=== PATIENT | female | born 1955 | race Caucasian/White ===

== ENCOUNTER → 2017-01-14 | Outpatient (CLI) | payer BC ==
[~2017-01-14] MED LIST: CIPR-255 PO; FLUO20CA36 PO; HYDR-5688 PO; IMT100 PO; LAMO1TAB21 PO; LPT10 PO; LTHCR300 PO; METR500T PO; TRAZ50TA35 PO
--- NOTE | 2017-01-14 11:55 | DIAGNOSTIC IMAGING REPORT ---
CHEST 2 VIEWS ROUTINE CLINICAL HISTORY: F31.81 BIPOLAR DISORDER PREPROCEDURE CHEST COMPARISON STUDY: No previous studies for comparison. FINDINGS: The cardiac and mediastinal contours are normal. There is no evidence of focal pulmonary consolidation. There is no evidence of failure. No pleural effusions are visualized.[ There is a small linear focus of subsegmental atelectasis the left lung base IMPRESSION: No active disease in the chest. Electronically signed by: Jarad Dangelo M.D. 01/14/2017 11:53 AM Dictated Date/Time: 01/14/2017 11:53 AM
== END | disposition home or self-care (01) ==
LOC: C.RAD1850 11:39
PROVIDERS: ATTEND Psychiatry & Neurology Psychiatry
DX: F31.81 Bipolar II disorder (principal)

== ENCOUNTER 2017-03-02 19:17 | Emergency (ER) | payer BC ==
[~2017-03-02] VITALS: Ht 162.6 cm; Wt 88.9 kg
[~2017-03-02 19:17] MED LIST changes: -CIPR-255 PO; -HYDR-5688 PO; -METR500T PO
[2017-03-02 19:19] VITALS: Ht 162.6 cm; Wt 88.9 kg
--- NOTE | 2017-03-02 19:38 | EMERGENCY ROOM VISIT NOTE ---
History Report prepared by Lisa: Jil Yuen Under the Supervision of: Dr. Meme Dickson D.O. First contact with patient: 19:26 Chief Complaint: ABDOMINAL PAIN Stated Complaint: SEVERE ABDOMINAL PAIN History of Present Illness The patient is a 61 year old female who presents to the Emergency Room with complaints of constant RLQ abdominal pain beginning at 0200 last night. The patient states that this is her fourth time coming to ER for diverticulitis, but that she has not been back in about a year. The patient denies having any procedures done for her diverticulitis. No hx of abscess or perf to her knowledge. She states that she has been both constipated and had diarrhea over the last 3 weeks. She reports a family history of diverticulitis. The patient states that she has been dealing with severe depression and that she has just completed 12 ECT treatments. Pt denies headache, change in vision, fevers, chest pain, shortness of breath, nausea, vomiting, pain with urination, and melena. Source of History: patient Onset: 0200 last night Position: abdomen (RLQ) Timing: constant Associated Symptoms: + diarrhea, No fevers, No chills, No headache, No chest pain, No nausea, No vomiting, No melena Review of Systems See HPI for pertinent positives & negatives. A total of 10 systems reviewed and were otherwise negative. Past Medical & Surgical Medical Problems: (1) Alcohol dependence (2) Depression (3) Diverticulitis (4) Past Psychotropic medications (5) rule out personlity disorder Social History Problems: (1) Alcohol abuse Family History Patient reports no known family medical history. Social History Smoking Status: Never Smoker Alcohol Use: heavy Marital Status: Housing Status: lives with family Occupation Status: employed Current/Historical Medications Scheduled Ciprofloxacin Hcl (Cipro), 500 MG PO BID Fluoxetine HCl (Fluoxetine HCl), 40 MG PO DAILY Lamotrigine (Lamotrigine), 200 MG PO DAILY Metronidazole (Flagyl), 500 MG PO TID Trazodone Hcl (Trazodone), 100 MG PO HS Scheduled PRN Hydrocodone/Acetaminophen 5MG/325MG ([place]wend[place] 5MG/325MG), 1 TABLET PO Q6 PRN for Pain Sumatriptan Succinate (Imitrex), 100 MG PO UD PRN for Migraine Allergies Coded Allergies: No Known Allergies (Unverified , 02/06/16) pt Physical Exam Vital Signs Date Time Temp Pulse Resp B/P (MAP) Pulse Ox O2 Delivery O2 Flow Rate FiO2 03/02/17 22:35 80 20 93 03/02/17 22:31 134/80 03/02/17 22:05 80 13 95 03/02/17 22:02 37.0 83 18 141/77 94 Room Air 03/02/17 21:31 141/77 03/02/17 21:17 83 18 94 03/02/17 21:01 133/80 03/02/17 20:58 139/83 03/02/17 20:35 80 03/02/17 20:31 125/74 03/02/17 19:19 37.0 98 18 118/75 95 Room Air Physical Exam GENERAL: alert, well appearing, well nourished, no distress, non-toxic EYE EXAM: normal conjunctiva, PERRL and EOM's grossly intact OROPHARYNX: no exudate, no erythema, lips, buccal mucosa, and tongue normal and mucous membranes are dry NECK: supple, no nuchal rigidity, no adenopathy, non-tender LUNGS: Clear to auscultation. Normal chest wall mechanics, no w/r/r HEART: no murmurs, S1 normal and S2 normal ABDOMEN: abdomen soft, LLQ lateral abdominal pain, normo-active bowel sounds, no masses, no rebound or guarding. BACK: Back is symmetrical on inspection and there is no deformity, no midline tenderness, no CVA tenderness. SKIN: no rashes and no bruising UPPER EXTREMITIES: upper extremities are grossly normal. LOWER EXTREMITIES: No pitting edema. NEURO EXAM: Normal sensorium, cranial nerves II-XII [grossly] intact, normal speech, no [gross] weakness of arms, no [gross] weakness of legs. Sensation grossly normal. Medical Decision & Procedures ER Provider Diagnostic Interpretation: Radiology results have been interpreted by the radiologist and reviewed by me. ABD/PELVIS IV CONTRAST ONLY CT DOSE: 648.05 mGy.cm HISTORY: Pelvic pain llq pain, hx diverticulitis TECHNIQUE: Multiaxial CT images of the abdomen and pelvis were performed following the use of intravenous contrast. A dose lowering technique was utilized adhering to the principles of ALARA. COMPARISON STUDY: 06/23/2015 FINDINGS: Lung bases are clear. Fatty infiltration of liver. Kidneys enhance uniformly. Pancreas is unremarkable. Considerable pericolonic infiltrative change of the distal descending colon and to a lesser extent proximal sigmoid. General wall thickening of this region of the colon consistent with acute diverticulitis. No well-defined drainable abscess or collection. Bowel pattern is considered nonobstructive. Chronic sigmoid diverticulosis. Normal appendix. IMPRESSION: 1. Significant acute distal descending and proximal sigmoid diverticulitis. 2. Considerable pericolonic infiltrative change with a trace of pericolonic fluid/edema. 3. No evidence for abscess collection or obstruction.. 4. Chronic sigmoid diverticulosis. The above report was generated using voice recognition software. It may contain grammatical, syntax or spelling errors. Electronically signed by: Jason Arreola M.D. 03/02/2017 8:58 PM Dictated Date/Time: 03/02/2017 8:53 PM Laboratory Results 03/02/17 19:50 Red Blood Count 4.38, Mean Corpuscular Volume 89.0, Mean Corpuscular Hemoglobin 30.8, Mean Corpuscular Hemoglobin Concent 34.6, Mean Platelet Volume 10.1, Neutrophils (%) (Auto) 76.0, Lymphocytes (%) (Auto) 11.0, Monocytes (%) (Auto) 12.3, Eosinophils (%) (Auto) 0.3, Basophils (%) (Auto) 0.1, Neutrophils # (Auto ) 8.36, Lymphocytes # (Auto) 1.21, Monocytes # (Auto) 1.35, Eosinophils # (Auto ) 0.03, Basophils # (Auto) 0.01 03/02/17 19:50 Test 03/02/17 19:50 White Blood Count 10.99 K/uL (4.8-10.8) Red Blood Count 4.38 M/uL (4.2-5.4) Hemoglobin 13.5 g/dL (12.0-16.0) Hematocrit 39.0 % (37-47) Mean Corpuscular Volume 89.0 fL (80-100) Mean Corpuscular Hemoglobin 30.8 pg (25-34) Mean Corpuscular Hemoglobin Concent 34.6 g/dl (32-36) Platelet Count 252 K/uL (130-400) Mean Platelet Volume 10.1 fL (7.4-10.4) Neutrophils (%) (Auto) 76.0 % Lymphocytes (%) (Auto) 11.0 % Monocytes (%) (Auto) 12.3 % Eosinophils (%) (Auto) 0.3 % Basophils (%) (Auto) 0.1 % Neutrophils # (Auto) 8.36 K/uL (1.4-6.5) Lymphocytes # (Auto) 1.21 K/uL (1.2-3.4) Monocytes # (Auto) 1.35 K/uL (0.11-0.59) Eosinophils # (Auto) 0.03 K/uL (0-0.5) Basophils # (Auto) 0.01 K/uL (0-0.2) RDW Standard Deviation 44.2 fL (36.4-46.3) RDW Coefficient of Variation 13.4 % (11.5-14.5) Immature Granulocyte % (Auto) 0.3 % Immature Granulocyte # (Auto) 0.03 K/uL (0.00-0.02) Anion Gap 8.0 mmol/L (3-11) Est Creatinine Clear Calc Drug Dose 51.8 ml/min Estimated GFR () 55.7 Estimated GFR (Non- 48.1 BUN/Creatinine Ratio 11.2 (10-20) Lactic Acid Level 1.9 mmol/L (0.4-2.0) Calcium Level 8.8 mg/dl (8.5-10.1) Total Bilirubin 0.5 mg/dl (0.2-1) Aspartate Amino Transf (AST/SGOT) 11 U/L (15-37) Alanine Aminotransferase (ALT/SGPT) 31 U/L (12-78) Alkaline Phosphatase 78 U/L (45-117) Total Protein 7.3 gm/dl (6.4-8.2) Albumin 3.7 gm/dl (3.4-5.0) Globulin 3.6 gm/dl (2.5-4.0) Albumin/Globulin Ratio 1.0 (0.9-2) Lipase 77 U/L (73-393) Laboratory results per my review. Medications Administered Medications (Trade) Dose Ordered Sig/Guerline Route Start Time Stop Time Status Last Admin Dose Admin Sodium Chloride 1,000 ml @ 999 mls/hr Q1H1M STAT IV 03/02/17 19:39 03/02/17 20:39 DC 03/02/17 20:16 999 MLS/HR Morphine Sulfate (MoRPHine SULFATE INJ) 4 mg NOW STAT IV 03/02/17 19:39 03/02/17 19:42 DC 03/02/17 20:16 4 MG Metronidazole (Flagyl Tab) 500 mg NOW STAT PO 03/02/17 21:14 03/02/17 21:15 DC 03/02/17 21:45 500 MG Ciprofloxacin/ Dextrose (Cipro / D5W) 400 mg NOW STAT IV 03/02/17 21:14 03/02/17 21:15 DC 03/02/17 21:45 400 MG Acetaminophen/ Hydrocodone Bitart ([place] 5/325 Tab) 1 tab NOW STAT PO 03/02/17 21:53 03/02/17 21:54 DC 03/02/17 21:59 1 TAB ECG Indication: abdominal pain Rate (beats per minute): 83 Rhythm: sinus rhythm Findings: RBBB, no acute ischemic change, other (normal axis) Change: no significant change ED Course 1929: The patient was evaluated in room C8. A complete history and physical exam was performed. 1938: Ordered Morphine Sulfate 4 mg IV, Sodium Chloride 1,000 ml @ 999 mls/hr IV. 2113: Ordered Ciprofloxacin/Dextrose 400 mg IV, Metronidazole 500 mg PO. 2152: Ordered Hydrocodone Bitart/ Acetaminophen 1 tab PO. 2219: I updated the patient. She feels well. 2229: Upon reevaluation, the patient is feeling better. I discussed the findings and the treatment plan with the patient. She verbalizes agreement and understanding. She was discharged home. Medical Decision Differential diagnosis: Etiologies such as appendicitis, diverticulitis, PUD, biliary pathology, UTI, pancreatitis, obstruction, mesenteric ischemia, aortic pathology, infections, inflammatory bowel disease, renal colic, as well as others were entertained. Pt well appearing here, no complications on CT. tolerating po. No evidence of bacteremia/sepsis. Pain controlled. Discussed close f/u with PCP and with GI. Discussed sx to watch/return for, she verbalized understanding and was agreeable with plan. Medication Reconcilliation Current Medication List: was personally reviewed by me Blood Pressure Screening Patient's blood pressure: Normal blood pressure Impression Primary Impression: Left lower quadrant pain Additional Impression: Diverticulitis Scribe Attestation The scribe's documentation has been prepared under my direction and personally reviewed by me in its entirety. I confirm that the note above accurately reflects all work, treatment, procedures, and medical decision making performed by me. Departure Information Dispostion Home / Self-Care Prescriptions Metronidazole (FLAGYL) 500 Mg Tab 500 MG PO TID for 10 Days, #30 TAB Prov: Randolph Meme S., DO 03/02/17 Ciprofloxacin Hcl (CIPRO) 500 Mg Tab 500 MG PO BID, #20 TAB Prov: Meme Dickson, DO 03/02/17 Hydrocodone/Acetaminophen 5MG/325MG ([place] 5MG/325MG) Tab 1 TABLET PO Q6 Y for Pain, #14 TAB PRN PAIN Prov: Meme Dickson, DO 03/02/17 Referrals Jade Montano M.D. (PCP) Forms HOME CARE DOCUMENTATION FORM, IMPORTANT VISIT INFORMATION Patient Instructions My [facility] Additional Instructions Please take the antibiotics as prescribed. Please eat a low fiber/low residue diet as instructed. If you have any worsening pain, notice blood with the bowel movements, develop vomiting, fevers, or you have any other new concerns, please return the emergency room. Please follow up with your family doctor and your GI specialist. Problem Qualifiers Additional Impression: Diverticulitis Diverticulitis site: large intestine Diverticulitis bleeding: without bleeding Diverticulitis complication: without perforation or abscess Qualified Codes: K57.32 - Diverticulitis of large intestine without perforation or abscess without bleeding
[2017-03-02] MEDS ORDERED: SODIUM CHLORIDE 0.9% 1000ML 1,000 ML IV STA (19:39)
[2017-03-02] MEDS ORDERED: MoRPHine SULFATE 4 MG/ML 1 ML CARP\\VIAL IV STA (19:39)
[2017-03-02] MEDS ORDERED: OPTIRAY 320 IV PRN (20:00)
[2017-03-02 20:04] LABS: BASO % 0.1 %; BASO ABS # 0.01 K/uL (0-0.2); COMPLETE YES; EOS % 0.3 %; IG% 0.3 %; LYMPH ABS # 1.21 K/uL (1.2-3.4); MEAN CORPUSCULAR HEMOGLOBIN 30.8 pg (25-34); MEAN CORPUSCULAR HGB CONC 34.6 g/dl (32-36); MEAN PLATELET VOLUME 10.1 fL (7.4-10.4); MONO % 12.3 %; PLATELET COUNT 252 K/uL (130-400); RED BLOOD COUNT 4.38 M/uL (4.2-5.4); WHITE BLOOD COUNT 10.99 K/uL (4.8-10.8)
[2017-03-02 20:20] LABS: BUN/CREATININE RATIO 11.2 (10-20); CALCIUM 8.8 mg/dl (8.5-10.1); CREATININE 1.2 mg/dl (0.60-1.20); POTASSIUM 3.6 mmol/L (3.5-5.1)
--- NOTE | 2017-03-02 21:00 | DIAGNOSTIC IMAGING REPORT ---
ABD/PELVIS IV CONTRAST ONLY CT DOSE: 648.05 mGy.cm HISTORY: Pelvic pain llq pain, hx diverticulitis TECHNIQUE: Multiaxial CT images of the abdomen and pelvis were performed following the use of intravenous contrast. A dose lowering technique was utilized adhering to the principles of ALARA. COMPARISON STUDY: 06/23/2015 FINDINGS: Lung bases are clear. Fatty infiltration of liver. Kidneys enhance uniformly. Pancreas is unremarkable. Considerable pericolonic infiltrative change of the distal descending colon and to a lesser extent proximal sigmoid. General wall thickening of this region of the colon consistent with acute diverticulitis. No well-defined drainable abscess or collection. Bowel pattern is considered nonobstructive. Chronic sigmoid diverticulosis. Normal appendix. IMPRESSION: 1. Significant acute distal descending and proximal sigmoid diverticulitis. 2. Considerable pericolonic infiltrative change with a trace of pericolonic fluid/edema. 3. No evidence for abscess collection or obstruction.. 4. Chronic sigmoid diverticulosis. The above report was generated using voice recognition software. It may contain grammatical, syntax or spelling errors. Electronically signed by: Jason Arreola M.D. 03/02/2017 8:58 PM Dictated Date/Time: 03/02/2017 8:53 PM
[2017-03-02] MEDS ORDERED: METRONIDAZOLE 250 MG TAB PO STA (21:14)
[2017-03-02] MEDS ORDERED: CIPROFLOXACIN 400MG / 200ML D5W IV STA (21:14)
[2017-03-02] MEDS ORDERED: HYDR-5688 PO (21:52)
[2017-03-02] MEDS ORDERED: METR500T PO (21:52)
[2017-03-02] MEDS ORDERED: CIPR-255 PO (21:52)
[2017-03-02] MEDS ORDERED: HYDROCODONE/ACETAMOPHEN 5/325MG TAB PO STA (21:53)
[2017-03-02 22:02] VITALS: TEMP 37
[2017-03-02 22:31] VITALS: BP 134/80
[2017-03-02 22:35] VITALS: PULSE 80; O2SAT 93
== END 2017-03-02 22:55 | disposition home or self-care (01) ==
LOC: C.EDB 19:18 → C.EDC 22:55
DX: R10.32 Left lower quadrant pain (principal); K57.32 Diverticulitis of large intestine without perforation or abscess without bleeding; F32.9 Major depressive disorder, single episode, unspecified; F10.20 Alcohol dependence, uncomplicated; Z79.899 Other long term (current) drug therapy

== ENCOUNTER → 2017-03-12 | Outpatient (CLI) | payer BC ==
[~2017-03-12] MED LIST changes: +CIPR-255 PO; +HYDR-5688 PO; -LPT10 PO; -LTHCR300 PO; +METR500T PO
--- NOTE | 2017-03-13 13:52 | MAMMOGRAPHY REPORT ---
BILATERAL DIGITAL SCREENING MAMMOGRAM TOMOSYNTHESIS WITH CAD: 03/12/2017 CLINICAL HISTORY: Routine screening. Patient has no complaints. TECHNIQUE: Breast tomosynthesis in addition to standard 2D mammography was performed. Current study was also evaluated with a Computer Aided Detection (CAD) system. COMPARISON: Comparison is made to exams dated: 02/22/2015 mammogram, 11/16/2013 mammogram - [facility], and 02/06/2009. BREAST COMPOSITION: The tissue of both breasts is almost entirely fatty. FINDINGS: No suspicious masses, calcifications, or areas of architectural distortion are noted in ei ther breast. There has been no significant interval change compared to prior exams. IMPRESSION: ACR BI-RADS CATEGORY 1: NEGATIVE There is no mammographic evidence of malignancy. A 1 year screening mammogram is recommended. The pa tient will receive written notification of the results. Approximately 10% of breast cancers are not detected with mammography. A negative mammographic report should not delay biopsy if a clinically suggestive mass is present. Brittany Pettit M.D. ah/:03/12/2017 15:44:15 Technical Recruiter: Jade Terry RT(R)(M)(BD), [facility] letter sent: Normal 1/2 BI-RADS Code: ACR BI-RADS Category 1: Negative
== END ==
LOC: C.MAMM 15:17
PROVIDERS: ATTEND Family Medicine
DX: Z12.31 Encounter for screening mammogram for malignant neoplasm of breast (principal)

== ENCOUNTER 2020-08-25 20:10 | Observation (INO) ==
[2020-08-25] MEDS ORDERED: ONDANSETRON INJ 2 MG/ML 2 ML VIAL IV STA (20:59)
[2020-08-25] MEDS ORDERED: ACETAMINOPHEN 1,000 MG/100 ML VIAL IV STA (20:59)
[2020-08-25] MEDS ORDERED: ALBUTEROL HFA 8 GM INHALER INH ONE (20:59)
[2020-08-25] MEDS ORDERED: BENZONATATE 100 MG CAPSULE PO ONE (20:59)
--- NOTE | 2020-08-25 21:07 | Emergency Department Note ---
History of Present Illness General Chief complaint: Flu Like Symptoms Stated complaint: COUGHING, FEVER Time Seen by Provider: 08/25/20 20:40 Source: patient Mode of arrival: ambulatory Limitations: no limitations History of Present Illness Provider complaint: Multiple symptoms, exposure to coronavirus Onset (ago): week(s) 1 Associated symptoms: + chest pain, + cough, + fever/chills, + loss of appetite, + malaise, + nausea/vomiting and + shortness of breath Treatments prior to arrival: NSAID This is a 64-year-old female who presents with multiple complaints and recent ex posure to coronavirus. Patient states 6 days ago she began having symptoms including cough, chest heaviness, trouble breathing, nausea, diarrhea. In more recent days patient began to spike a fever, highest up to 102 F. Patient states her had been sick several days before her and was tested for coronavirus and was found to be positive on Friday. Patient did not yet been tested. Patient did receive 1 out of 2 of the coronavirus vaccines. Patient did also receive her flu vaccination this year. Patient denies any history of tobacco abuse, asthma, or other pulmonary issues. Patient states she has felt more short of breath. Patient states she has a frequent coarse cough however it is not productive of any sputum. Patient denies any other ongoing medical problems or recent change in any medications. Patient is also noticed frequent diarrhea, however denies any black or bloody stools with this. Patient states she has been trying to drink plenty of water despite her nausea. She has not had any overt vomiting. Pt seen during a time of high acuity and national emergency pandemic while wearing PPE. Home Medications Medication Instructions Recorded Confirmed Type fluoxetine 40 mg PO DAILY 08/25/20 08/25/20 History ibuprofen 400 mg PO Q6H PRN 08/25/20 08/25/20 History lamotrigine 200 mg PO DAILY 08/25/20 08/25/20 History lithium carbonate 300 mg PO DAILY 08/25/20 08/25/20 History quetiapine 200 mg PO HS 08/25/20 08/25/20 History sumatriptan succinate 100 mg PO UD PRN 08/25/20 08/25/20 History trazodone 100 mg PO HS 08/25/20 08/25/20 History trazodone 150 mg PO HS 08/25/20 08/25/20 History Allergies Allergy/AdvReac Type Severity Reaction Status Date / Time No Known Allergies Allergy Unverified 08/25/20 20:46 Past Med/Surg History Medical History (Updated 08/26/20 @ 00:18 by Geneva Faith DO) Depression Severe depressed bipolar II disorder without psychotic features Surgical History (Updated 08/26/20 @ 00:18 by Geneva Faith DO) No significant past surgical history Family History (Updated 08/26/20 @ 00:18 by Geneva Faith DO) Other Diabetes Social History (Updated 08/26/20 @ 00:18 by Geneva Faith DO) Smoking Status: Never smoker Hx Alcohol Use: Yes Hx Substance Use: No Current Living Situation: Spouse Feels Safe at Home: Yes Review of Systems See HPI for pertinent positives & negatives. and A total of 10 systems reviewed and were otherwise negative Physical Exam Vital Signs Vital Signs - 24 hr 08/25/20 20:12 08/25/20 21:24 08/25/20 21:33 Temperature 37.4 C 38.1 C H Temperature Source Oral Oral Pulse Rate 89 79 Pulse Rate [Right Finger] Pulse Rate from SpO2 Sensor Respiratory Rate 21 24 Respiratory Effort / Characteristics Non-Labored Respiratory Depth Normal Blood Pressure 138/76 122/73 Blood Pressure [Left Arm] Blood Pressure Mean 96 89 Blood Pressure Mean [Left Arm] Pulse Oximetry 92 Oxygen Delivery Method Room Air Oxygen Flow Rate Sepsis Recent Fever Within 48 Hours No Sepsis New/Unexplained Change in Mental Status N/A Sepsis Action Taken by Nursing No Action Required 08/25/20 21:44 08/25/20 21:48 08/25/20 21:49 Temperature Temperature Source Pulse Rate 80 Pulse Rate [Right Finger] Pulse Rate from SpO2 Sensor Respiratory Rate 16 Respiratory Effort / Characteristics Respiratory Depth Blood Pressure Blood Pressure [Left Arm] Blood Pressure Mean Blood Pressure Mean [Left Arm] Pulse Oximetry 88 L 98 Oxygen Delivery Method Room Air Nasal Cannula Oxygen Flow Rate 2 Sepsis Recent Fever Within 48 Hours Sepsis New/Unexplained Change in Mental Status Sepsis Action Taken by Nursing 08/25/20 22:00 08/25/20 22:01 08/25/20 22:30 Temperature Temperature Source Pulse Rate 78 86 80 Pulse Rate [Right Finger] 79 Pulse Rate from SpO2 Sensor 78 86 80 Respiratory Rate 18 18 15 Respiratory Effort / Characteristics Respiratory Depth Blood Pressure 120/84 Blood Pressure [Left Arm] 120/84 Blood Pressure Mean 96 Blood Pressure Mean [Left Arm] 96 Pulse Oximetry 96 96 96 Oxygen Delivery Method Nasal Cannula Oxygen Flow Rate 2 Sepsis Recent Fever Within 48 Hours Sepsis New/Unexplained Change in Mental Status Sepsis Action Taken by Nursing 08/25/20 23:00 08/25/20 23:04 08/25/20 23:24 Temperature 37.9 C H Temperature Source Oral Pulse Rate 79 Pulse Rate [Right Finger] Pulse Rate from SpO2 Sensor 79 Respiratory Rate 18 Respiratory Effort / Characteristics Respiratory Depth Blood Pressure 126/75 Blood Pressure [Left Arm] Blood Pressure Mean 92 Blood Pressure Mean [Left Arm] Pulse Oximetry 95 Oxygen Delivery Method Oxygen Flow Rate Sepsis Recent Fever Within 48 Hours Sepsis New/Unexplained Change in Mental Status Sepsis Action Taken by Nursing 08/25/20 23:30 08/26/20 00:00 08/26/20 00:01 Temperature Temperature Source Pulse Rate 79 78 79 Pulse Rate [Right Finger] Pulse Rate from SpO2 Sensor 79 78 80 Respiratory Rate 17 18 17 Respiratory Effort / Characteristics Respiratory Depth Blood Pressure 128/99 Blood Pressure [Left Arm] Blood Pressure Mean 108 Blood Pressure Mean [Left Arm] Pulse Oximetry 93 95 95 Oxygen Delivery Method Oxygen Flow Rate Sepsis Recent Fever Within 48 Hours Sepsis New/Unexplained Change in Mental Status Sepsis Action Taken by Nursing GENERAL: alert, ill appearing, well nourished, mild distress, non-toxic EYE EXAM: normal conjunctiva, PERRL and EOM's grossly intact OROPHARYNX: no exudate, no erythema, lips, buccal mucosa, and tongue normal and mucous membranes are moist NECK: supple, no nuchal rigidity, no adenopathy, non-tender LUNGS: Clear but decreased to auscultation. Normal chest wall mechanics, no w/r/r, slight tachypnea, frequent coarse cough noted during exam, no retractions HEART: no murmurs, S1 normal and S2 normal ABDOMEN: abdomen soft, non-tender, normo-active bowel sounds, no masses, no rebound or guarding. BACK: Back is symmetrical on inspection and there is no deformity, no midline tenderness, no CVA tenderness. SKIN: no rashes and no bruising UPPER EXTREMITIES: upper extremities are grossly normal. FROM, nml pulses b/l. LOWER EXTREMITIES: No pitting edema. FROM, nml pulses b/l. NEURO EXAM: Normal sensorium, cranial nerves II-XII grossly intact, normal speech, no gross weakness of arms, no gross weakness of legs. Gross sensation intact. Course Course 2299: Patient updated on results and plan, verbalized understanding and in agreement. 2344: Discussed with Dr. Faith. Administered Medications Discontinued Medications Albuterol (Albuterol Hfa 8 Gm Inhaler) 2 puffs INH NOW ONE Stop: 08/25/20 21:00 Last Admin: 08/25/20 21:23 Dose: 2 puffs Documented by: [id number] Benzonatate (Benzonatate 100 Mg Capsule) 100 mg PO NOW ONE Stop: 08/25/20 21:00 Last Admin: 08/25/20 21:23 Dose: 100 mg Documented by: [id number] Dexamethasone (Dexamethasone Sod Inj 4 Mg/Ml Vial) 6 mg IV NOW STA Stop: 08/25/20 21:52 Last Admin: 08/25/20 22:56 Dose: 6 mg Documented by: [id number] Sodium Chloride (Nss 1000ml) 1,000 mls @ 250 mls/hr IV .Q4H ELIZABETH Stop: 09/24/20 20:59 Last Admin: 08/25/20 21:45 Dose: 250 mls/hr Documented by: [id number] Acetaminophen (Ofirmev) 1,000 mg in 100 mls @ 400 mls/hr IV NOW STA Stop: 08/25/20 21:13 Last Infusion: 08/25/20 22:04 Dose: 0 mls/hr Documented by: [id number] Admin: 08/25/20 21:45 Dose: 400 mls/hr Documented by: [id number] Ondansetron HCl (Ondansetron Inj 2 Mg/Ml 2 Ml Vial) 4 mg IV NOW STA Stop: 08/25/20 21:00 Last Admin: 08/25/20 21:45 Dose: 4 mg Documented by: [id number] Medical Decision Making Differential Diagnosis Differential diagnoses includes but is not limited to pneumonia, bronchitis, COPD/Asthma exacerbation, pneumothorax, pulmonary embolism, congestive heart failure, acute coronary syndrome Medical Records Attestation: I reviewed the patient's medical records. Home Medications Current Medication List: was personally reviewed by me Laboratory Data Attestation: I reviewed the patient's lab results. Result diagrams: 08/25/20 21:47 08/25/20 21:47 Lab Results 03/08/25/20 08/25/20 Range/Units 21:47 21:47 21:47 WBC 4.67 L (4.8-10.8) K/uL RBC 4.09 L (4.2-5.4) M/uL Hgb 13.0 (12.0-16.0) g/dL Hct 38.1 (37-47) % MCV 93.2 (80-100) fL MCH 31.8 (25-34) pg MCHC 34.1 (32-36) g/dL RDW Std Deviation 46.9 H (36.4-46.3) fL RDW Coeff of Traci 13.6 (11.5-14.5) % Plt Count 180 (130-400) K/uL MPV 10.3 (7.4-10.4) fL Immature Gran % (Auto) 0.2 % Neut % (Auto) 66.0 % Lymph % (Auto) 20.8 % [place] % (Auto) 12.8 % Eos % (Auto) 0.0 % Baso % (Auto) 0.2 % Neut # (Auto) 3.08 (1.4-6.5) K/uL Lymph # (Auto) 0.97 L (1.2-3.4) K/uL [place] # (Auto) 0.60 H (0.11-0.59) K/uL Eos # (Auto) 0.00 (0-0.5) K/uL Baso # (Auto) 0.01 (0-0.2) K/uL Immature Gran # (Auto) 0.01 (0.00-0.02) K/uL Sodium 134 L (136-145) mmol/L Potassium 3.7 (3.5-5.1) mmol/L Chloride 103 (98-107) mmol/L Carbon Dioxide 26 (21-32) mmol/L Anion Gap 6.0 (3-11) BUN 12 (7-18) mg/dl Creatinine 0.88 (0.6-1.2) mg/dl Est Cr Clr Drug Dosing 68.8 ml/min Est GFR ( Amer) 79.4 Est GFR (Non-Af Amer) 68.5 BUN/Creatinine Ratio 13.1 (10-20) Glucose 120 H (70-99) mg/dl Calcium 9.0 (8.5-10.1) mg/dl Phosphorus 1.9 L (2.5-4.9) mg/dl Magnesium 2.0 (1.8-2.4) mg/dl Total Bilirubin 0.2 (0.2-1) mg/dl AST 42 H (15-37) U/L ALT 58 (12-78) U/L Alkaline Phosphatase 85 (45-117) U/L Troponin I < 0.015 (0-0.045) ng/ml NT-Pro-B Natriuret Pep 335 (0-900) pg/ml Total Protein 7.7 (6.4-8.2) gm/dl Albumin 3.4 (3.4-5.0) gm/dl Globulin 4.3 H (2.5-4.0) gm/dl Albumin/Globulin Ratio 0.8 L (0.9-2) Specimen Hemolysis COVID-19 Eval Order CovFluRsv at [facility] SARS-CoV-2 (PCR) (Negative) Influenza Type A (PCR) (Neg) Influenza Type B (PCR) (Neg) RSV (RT-PCR) (Neg) 08/25/20 Range/Units 21:47 WBC (4.8-10.8) K/uL RBC (4.2-5.4) M/uL Hgb (12.0-16.0) g/dL Hct (37-47) % MCV (80-100) fL MCH (25-34) pg MCHC (32-36) g/dL RDW Std Deviation (36.4-46.3) fL RDW Coeff of Traci (11.5-14.5) % Plt Count (130-400) K/uL MPV (7.4-10.4) fL Immature Gran % (Auto) % Neut % (Auto) % Lymph % (Auto) % [place] % (Auto) % Eos % (Auto) % Baso % (Auto) % Neut # (Auto) (1.4-6.5) K/uL Lymph # (Auto) (1.2-3.4) K/uL [place] # (Auto) (0.11-0.59) K/uL Eos # (Auto) (0-0.5) K/uL Baso # (Auto) (0-0.2) K/uL Immature Gran # (Auto) (0.00-0.02) K/uL Sodium (136-145) mmol/L Potassium (3.5-5.1) mmol/L Chloride (98-107) mmol/L Carbon Dioxide (21-32) mmol/L Anion Gap (3-11) BUN (7-18) mg/dl Creatinine (0.6-1.2) mg/dl Est Cr Clr Drug Dosing ml/min Est GFR ( Amer) Est GFR (Non-Af Amer) BUN/Creatinine Ratio (10-20) Glucose (70-99) mg/dl Calcium (8.5-10.1) mg/dl Phosphorus (2.5-4.9) mg/dl Magnesium (1.8-2.4) mg/dl Total Bilirubin (0.2-1) mg/dl AST (15-37) U/L ALT (12-78) U/L Alkaline Phosphatase (45-117) U/L Troponin I (0-0.045) ng/ml NT-Pro-B Natriuret Pep (0-900) pg/ml Total Protein (6.4-8.2) gm/dl Albumin (3.4-5.0) gm/dl Globulin (2.5-4.0) gm/dl Albumin/Globulin Ratio (0.9-2) Specimen Hemolysis COVID-19 Eval Order SARS-CoV-2 (PCR) POSITIVE A* (Negative) Influenza Type A (PCR) Negative (Neg) Influenza Type B (PCR) Negative (Neg) RSV (RT-PCR) Negative (Neg) Imaging Data My Impression: X-ray: I interpreted the following studies. Chest: A single view study of the chest was reviewed and was negative for cardiomegaly, focal infiltrate, effusion, pulmonary edema, or wide mediastinum. Slightly increased interstitial markings noted bilaterally. ECG Data Attestation: I personally reviewed and interpreted this ECG as follows: Indication: + SOB/dyspnea Rate (beats per minute): 89 Rhythm: + normal sinus ECG Intervals/blocks: + Right Bundle branch block and + Normal QT ECG Unity: + Normal ECG ST segments: + Nonspecific ST abnormalities Comparison ECG Date: from (03/02/2017) Change: no significant change MDM Narrative This is an ill-appearing 64-year-old female who presents with multiple complaints and recent exposure to coronavirus and a close family member. Patient with multiple symptoms consistent with coronavirus infection however concern for dehydration, increased shortness of breath, and chest pain. Patient hemodynamically stable on arrival. Initially at rest patient's oxygen saturations in the low 90s. Patient with no significant prior pulmonary history. With any movement or exertion, patient's oxygen saturations dropped into the 80s. Patient's labs were reassuring, mild leukopenia noted consistent with acute viral illness. Chest x-ray with mildly increased interstitial markings bilaterally, no focal consolidation. Patient felt improved following treatment of her course cough here with Tessalon Perles and albuterol MDI. Patient was rehydrated intervenous here. No evidence of acute cardiac manifestation, EKG unchanged compared to prior. At this time I do not suspect underlying PE or secondary community-acquired pneumonia. Patient's H&H stable, electrolytes and renal function otherwise reassuring. Due to need for supplem ental oxygen, persistent respiratory symptoms, and concern for course at this time, discussed with the patient need for additional inpatient evaluation and monitoring. Patient verbalized understanding and was in agreement with the plan. Decadron 6 mg IV was added here. Case discussed with hospitalist for additional evaluation and management. An order was placed for continuous cardiac monitoring. The monitor shows a rate of _80_ with _normal sinus_ rhythm. Impression & Plan Dyspnea, Hypoxia, COVID-19, Diarrhea Discharge Plan Visit Data Chief Complaint: Flu Like Symptoms Stated Complaint: COUGHING, FEVER ED Provider: Meme Dickson Discharge Problem: Dyspnea, Hypoxia, COVID-19, Diarrhea Patient Disposition: Admitted As Inpatient Discharge Instructions Interventions: ED Discharge Assessment Last Done: 08/26/20 00:51 Discharge Problem: Dyspnea Qualifiers: Dyspnea type: shortness of breath Qualified Code(s): R06.02 - Shortness of breath Diarrhea Qualifiers: Diarrhea type: unspecified type Qualified Code(s): R19.7 - Diarrhea, unspecified
[2020-08-25] MEDS: SODIUM CHLORIDE 0.9% 1000ML 1,000 ML IV SCH (21:45)
[2020-08-25] MEDS ORDERED: DEXAMETHASONE SOD INJ 4 MG/ML VIAL IV STA (21:51)
[2020-08-25 22:02] LABS: Basophils # (auto) 0.01 K/uL (0-0.2); Basophils % (auto) 0.2 %; Hematocrit (blood only) 38.1 % (37-47); Immature Granulocytes # (auto) 0.01 K/uL (0.00-0.02); Immature Granulocytes % (auto) 0.2 %; Lymphocytes # (auto) 0.97 K/uL (1.2-3.4); Lymphocytes % (auto) 20.8 %; Mean Corpuscular Hemoglobin 31.8 pg (25-34); Mean Corpuscular Hgb Conc 34.1 g/dL (32-36); Mean Corpuscular Volume 93.2 fL (80-100); Mean Platelet Volume 10.3 fL (7.4-10.4); Monocytes % (auto) 12.8 %; Neutrophils # (auto) 3.08 K/uL (1.4-6.5); Platelet Count 180 K/uL (130-400); RDW Coefficient of Variation 13.6 % (11.5-14.5); RDW Standard Deviation 46.9 fL (36.4-46.3); Red Blood Count 4.09 M/uL (4.2-5.4); White Blood Count 4.67 K/uL (4.8-10.8)
[2020-08-25 22:27] LABS: Alanine Aminotransferase 58 U/L (12-78); Albumin Level 3.4 gm/dl (3.4-5.0); Aspartate Aminotransferase 42 U/L (15-37); BUN Creatinine Ratio 13.1 (10-20); Blood Urea Nitrogen 12 mg/dl (7-18); Carbon Dioxide 26 mmol/L (21-32); Chloride 103 mmol/L (98-107); Creatinine Clr Calc Pharmacy 68.8 ml/min; Est GFR (African American) 79.4; Est GFR (Non-African American) 68.5; Glucose 120 mg/dl (70-99); Potassium 3.7 mmol/L (3.5-5.1); Sodium 134 mmol/L (136-145)
[2020-08-25 22:35] LABS: Albumin Globulin Ratio 0.8 (0.9-2); Alkaline Phosphatase 85 U/L (45-117); Bilirubin,Total 0.2 mg/dl (0.2-1); Globulin 4.3 gm/dl (2.5-4.0); NT Pro B Type Natriuretic Pept 335 pg/ml (0-900); Total Protein 7.7 gm/dl (6.4-8.2); Troponin I < 0.015 ng/ml (0-0.045)
[2020-08-25 22:46] LABS: Influenza A virus by PCR Negative (Neg); Influenza B virus by PCR Negative (Neg); RSV by PCR Negative (Neg)
[2020-08-25 22:47] LABS: SARS CoV2 RNA(COVID-19) InHosp POSITIVE (Negative)
--- NOTE | 2020-08-26 00:09 | History & Physical Report ---
Date of Service August 26, 2020 Assessment & Plan (1) COVID-19: 64yo C female presenting with Covid-19 pneumonia, hypoxic to 88% on room air at rest and 80% with ambulation. Patient with leukopenia and lymphopenia as well as slightly decreased Na to 134 and mildly elevated AST of 42. She is appx on day 6-7 of illness. She is partially vaccinated having received her first dose of vaccine on 08/04/20. -Admit to medical floor with telemetry -Maintain Covid-19 precautions - contact and airborne -Check inflammatory markers - ESR, CRP. Check D-dimer, procalcitonin, LDH and Ferritin -Supplemental O2 as needed to maintain saturation of 94%. Patient currently on 2L NC saturating 95% -Dexamethasone 6mg IV daily - patient received first dose while in ER -Patient would most likely not benefit from treatment with Convalescent plasma or Remdesivir at this point in illness - Day 6-7 -Tylenol as needed for pain or fever -Tessalon as needed for cough -Albuterol as needed for cough -Lovenox 40u BID (2) Severe depressed bipolar II disorder without psychotic features: Well managed at present. Patient states that her moods are stable. Monitor mental status and moods closely while patient is on steroid regimen. -Continue Trazodone 250mg po qHS -Continue Seroquel 200mg po qHS -Continue Lamictal 200mg po daily -Continue Fluoxetine 40mg po daily -Continue [place] 300mg po daily. Check level in AM F/E/N - IVF given in ER. Electrolytes WNL. Regular diet as tolerated Ppx - Lovenox 40 BID Code - Full per discussion with patient Dispo - Admit to medical with telemetry. Maintain Covid-19 isolation precautions Present on Admission?: Yes History of Present Illness Chief Complaint: Covid-19 infection Primary Care Provider: Jade Montano MD [place] is a pleasant 64yo female presenting with Covid-19, hypoxia. Patient began developing symptoms approximately 6-7 days ago. She has a dry cough, chest discomfort, SOB, malaise, fevers/chills as well as nausea, vomiting and diarrhea, decreased oral intake. She does endorse loss of taste and smell as well. Symptoms have been persistent, progressively worsening over the last few days. Patient's with similar symptoms - he tested positive for Covid-19 on 08/22/20. She believes they were exposed to the virus when they were in [place]. She did receive her first dose of Covid-19 vaccine on August 04 and is due for her second shot on September 08 Upon arrival to the ER patient was febrile at 38.1, saturation of 88% on room air. She ambulated to the restroom with saturations decreasing to 80%. ER Course: Tylenol, Albuterol HFA, Tessalon, Decadron 6mg IV, Zofran, NSS Allergies Allergy/AdvReac Type Severity Reaction Status Date / Time No Known Allergies Allergy Unverified 08/25/20 20:46 Home Medications Medication Instructions Recorded Confirmed Type fluoxetine 40 mg PO DAILY 08/25/20 08/25/20 History ibuprofen 400 mg PO Q6H PRN 08/25/20 08/25/20 History lamotrigine 200 mg PO DAILY 08/25/20 08/25/20 History lithium carbonate 300 mg PO DAILY 08/25/20 08/25/20 History quetiapine 200 mg PO HS 08/25/20 08/25/20 History sumatriptan succinate 100 mg PO UD PRN 08/25/20 08/25/20 History trazodone 100 mg PO HS 08/25/20 08/25/20 History trazodone 150 mg PO HS 08/25/20 08/25/20 History Past Med/Surg History Medical History (Updated 08/26/20 @ 00:18 by Geneva Faith DO) Depression Severe depressed bipolar II disorder without psychotic features Surgical History (Updated 08/26/20 @ 00:18 by Geneva Faith DO) No significant past surgical history Family History (Updated 08/26/20 @ 00:18 by Geneva Faith DO) Other Diabetes Social History (Updated 08/26/20 @ 00:18 by Geneva Faith DO) Smoking Status: Never smoker Hx Alcohol Use: No Hx Substance Use: No Feels Safe at Home: Yes Review of Systems Review of Systems: All systems reviewed & are unremarkable except as noted in HPI & below +cough, fever/chills, malaise +loss of taste/smell Physical Exam Physical Exam: General: patient resting comfortably, NAD, non-toxic in appearance, AA&O x 4 Skin: warm, dry, intact, no rashes or lesions HEENT: NC/AT, PERRL, EOMI, anicteric sclera, conjunctiva without injection, external ear normal to inspection and nontender, nares patent, moist mucus membranes, dentition intact, no oropharyngeal lesions, neck supple, trachea midline, no LAD, no thyromegaly, no JVD Heart: +S1/S2, regular, no m/r/g Lungs: equal air entry bilaterally, no rales/rhonchi/wheezes Abd: +BS, soft, NT/ND, no masses/organomegaly/ascites Ext: warm, 2+ pulses in UE/LE bilaterally, no clubbing/cyanosis or edema Neuro: nonfocal, patient AA&O x 4, speech intact, no facial droop, moving all extremities on command with equal strength 5/5 Results & Data Results & Data ([facility]) Vital Signs (Past 12 Hours) Vital Signs Temp Pulse Pulse Resp BP BP Pulse Ox 08/25/20 23:30 79 17 93 08/25/20 23:24 37.9 C H 08/25/20 23:04 79 18 95 08/25/20 23:00 126/75 08/25/20 22:30 80 15 96 08/25/20 22:01 86 18 96 08/25/20 22:00 78 79 18 120/84 120/84 96 08/25/20 21:49 98 08/25/20 21:48 88 L 08/25/20 21:44 80 16 08/25/20 21:33 79 24 122/73 08/25/20 21:24 38.1 C H 08/25/20 20:12 37.4 C 89 21 138/76 92 Laboratory Results Lab Results 08/25/20 08/25/20 08/25/20 Range/Units 21:47 21:47 21:47 WBC 4.67 L (4.8-10.8) K/uL RBC 4.09 L (4.2-5.4) M/uL Hgb 13.0 (12.0-16.0) g/dL Hct 38.1 (37-47) % MCV 93.2 (80-100) fL MCH 31.8 (25-34) pg MCHC 34.1 (32-36) g/dL RDW Std Deviation 46.9 H (36.4-46.3) fL RDW Coeff of Traci 13.6 (11.5-14.5) % Plt Count 180 (130-400) K/uL MPV 10.3 (7.4-10.4) fL Immature Gran % (Auto) 0.2 % Neut % (Auto) 66.0 % Lymph % (Auto) 20.8 % [place] % (Auto) 12.8 % Eos % (Auto) 0.0 % Baso % (Auto) 0.2 % Neut # (Auto) 3.08 (1.4-6.5) K/uL Lymph # (Auto) 0.97 L (1.2-3.4) K/uL [place] # (Auto) 0.60 H (0.11-0.59) K/uL Eos # (Auto) 0.00 (0-0.5) K/uL Baso # (Auto) 0.01 (0-0.2) K/uL Immature Gran # (Auto) 0.01 (0.00-0.02) K/uL Sodium 134 L (136-145) mmol/L Potassium 3.7 (3.5-5.1) mmol/L Chloride 103 (98-107) mmol/L Carbon Dioxide 26 (21-32) mmol/L Anion Gap 6.0 (3-11) BUN 12 (7-18) mg/dl Creatinine 0.88 (0.6-1.2) mg/dl Est Cr Clr Drug Dosing 68.8 ml/min Est GFR ( Amer) 79.4 Est GFR (Non-Af Amer) 68.5 BUN/Creatinine Ratio 13.1 (10-20) Glucose 120 H (70-99) mg/dl Calcium 9.0 (8.5-10.1) mg/dl Magnesium 2.0 (1.8-2.4) mg/dl Total Bilirubin 0.2 (0.2-1) mg/dl AST 42 H (15-37) U/L ALT 58 (12-78) U/L Alkaline Phosphatase 85 (45-117) U/L Troponin I < 0.015 (0-0.045) ng/ml NT-Pro-B Natriuret Pep 335 (0-900) pg/ml Total Protein 7.7 (6.4-8.2) gm/dl Albumin 3.4 (3.4-5.0) gm/dl Globulin 4.3 H (2.5-4.0) gm/dl Albumin/Globulin Ratio 0.8 L (0.9-2) Specimen Hemolysis COVID-19 Eval Order CovFluRsv at [facility] SARS-CoV-2 (PCR) (Negative) Influenza Type A (PCR) (Neg) Influenza Type B (PCR) (Neg) RSV (RT-PCR) (Neg) 08/25/20 Range/Units 21:47 WBC (4.8-10.8) K/uL RBC (4.2-5.4) M/uL Hgb (12.0-16.0) g/dL Hct (37-47) % MCV (80-100) fL MCH (25-34) pg MCHC (32-36) g/dL RDW Std Deviation (36.4-46.3) fL RDW Coeff of Traci (11.5-14.5) % Plt Count (130-400) K/uL MPV (7.4-10.4) fL Immature Gran % (Auto) % Neut % (Auto) % Lymph % (Auto) % [place] % (Auto) % Eos % (Auto) % Baso % (Auto) % Neut # (Auto) (1.4-6.5) K/uL Lymph # (Auto) (1.2-3.4) K/uL [place] # (Auto) (0.11-0.59) K/uL Eos # (Auto) (0-0.5) K/uL Baso # (Auto) (0-0.2) K/uL Immature Gran # (Auto) (0.00-0.02) K/uL Sodium (136-145) mmol/L Potassium (3.5-5.1) mmol/L Chloride (98-107) mmol/L Carbon Dioxide (21-32) mmol/L Anion Gap (3-11) BUN (7-18) mg/dl Creatinine (0.6-1.2) mg/dl Est Cr Clr Drug Dosing ml/min Est GFR ( Amer) Est GFR (Non-Af Amer) BUN/Creatinine Ratio (10-20) Glucose (70-99) mg/dl Calcium (8.5-10.1) mg/dl Magnesium (1.8-2.4) mg/dl Total Bilirubin (0.2-1) mg/dl AST (15-37) U/L ALT (12-78) U/L Alkaline Phosphatase (45-117) U/L Troponin I (0-0.045) ng/ml NT-Pro-B Natriuret Pep (0-900) pg/ml Total Protein (6.4-8.2) gm/dl Albumin (3.4-5.0) gm/dl Globulin (2.5-4.0) gm/dl Albumin/Globulin Ratio (0.9-2) Specimen Hemolysis COVID-19 Eval Order SARS-CoV-2 (PCR) POSITIVE A* (Negative) Influenza Type A (PCR) Negative (Neg) Influenza Type B (PCR) Negative (Neg) RSV (RT-PCR) Negative (Neg) ECG Additional Comments: EKG with NSR at 89, left axis, SF=615, VMU=538, BPr=470, RBBB present Code Status & VTE Plan VTE Prophylaxis Plan VTE Prophylaxis will be ordered: Yes PG Care Time/CCT Total # of Minutes Spent Total Time Spent with Patient: Total time spent is greater than 50% in coordination of care (as documented) at patient's floor/unit and/or counseling patient: Coding Level of Care Code 76510 Initial Inpt Care Lvl 2 Diagnoses COVID-19 U07.1 Severe depressed bipolar II disorder without psychotic features F31.81
[2020-08-26] MEDS ORDERED: BENZONATATE 100 MG CAPSULE PO PRN (01:26)
[2020-08-26] MEDS ORDERED: ALBUTEROL HFA 8 GM INHALER INH PRN (01:26)
[2020-08-26] MEDS ORDERED: ACETAMINOPHEN 325 MG TAB PO PRN (01:26)
[2020-08-26] MEDS ORDERED: ONDANSETRON INJ 2 MG/ML 2 ML VIAL IV PRN (01:26)
[2020-08-26 02:00] LABS: Phosphorus 1.9 mg/dl (2.5-4.9)
[2020-08-26] MEDS: SODIUM CHLORIDE 0.9% 1000ML 1,000 ML IV SCH (03:14)
[2020-08-26 05:59] LABS: Hematocrit (blood only) 35.3 % (37-47); Hemoglobin 12.3 g/dL (12.0-16.0); Immature Granulocytes # (auto) 0.01 K/uL (0.00-0.02); Immature Granulocytes % (auto) 0.3 %; Lymphocytes # (auto) 0.48 K/uL (1.2-3.4); Lymphocytes % (auto) 13.3 %; Mean Corpuscular Hemoglobin 31.9 pg (25-34); Mean Corpuscular Hgb Conc 34.8 g/dL (32-36); Mean Corpuscular Volume 91.7 fL (80-100); Mean Platelet Volume 10.1 fL (7.4-10.4); Monocytes # (auto) 0.25 K/uL (0.11-0.59); Monocytes % (auto) 6.9 %; Neutrophils # (auto) 2.88 K/uL (1.4-6.5); Neutrophils % (auto) 79.5 %; Platelet Count 187 K/uL (130-400); RDW Coefficient of Variation 13.7 % (11.5-14.5); RDW Standard Deviation 45.9 fL (36.4-46.3); Red Blood Count 3.85 M/uL (4.2-5.4); White Blood Count 3.62 K/uL (4.8-10.8)
[2020-08-26 06:28] LABS: C Reactive Protein 3.59 mg/dl (0-0.29); Calcium 8.9 mg/dl (8.5-10.1); Est GFR (African American) 94.7; Est GFR (Non-African American) 81.7; Potassium 4.2 mmol/L (3.5-5.1)
[2020-08-26 06:32] LABS: Ferritin 456.6 ng/ml (8-388)
[2020-08-26 06:37] LABS: D Dimer 380 ug/L FEU (0-500)
--- NOTE | 2020-08-26 08:35 | XRay Report ---
XR chest 1V portable CLINICAL HISTORY: cough, sob COMPARISON STUDY: No previous studies for comparison. FINDINGS: The heart is normal in size. There is no failure. Minimal peripheral right lung airspace op acities are suspected. There are equivocal minimal left basilar airspace opacities. The findings may represent a multifocal pneumonia. There are no pleural effusions.[ IMPRESSION: Subtle bilateral pulmonary opacities possibly representing a multifocal pneumonia. Clinic al and radiographic follow-up is recommended. ACT 112: Negative or not required by law. Electronically signed by: Jarad Dangelo M.D. 08/26/2020 8:33 AM
[2020-08-26] MEDS ORDERED: dexAMETHasone 6 MG in SYRINGE 0 ML IV SCH (09:00)
[2020-08-26] MEDS ORDERED: lamoTRIgine 100 MG TAB PO SCH (09:00)
[2020-08-26] MEDS ORDERED: ENOXAPARIN INJ 40 MG/0.4 ML SYR SQ SCH (09:00)
[2020-08-26] MEDS ORDERED: FLUoxetine HCL 20 MG CAP PO SCH (09:00)
[2020-08-26] MEDS ORDERED: LITHIUM CARBONATE 300 MG TAB PO SCH (09:00)
--- NOTE | 2020-08-26 10:11 | Electrocardiogram Report ---
Test Reason : Blood Pressure : / mmHG Vent. Rate : 089 BPM Atrial Rate : 089 BPM P-R Int : 146 ms QRS Dur : 128 ms QT Int : 376 ms P-R-T Axes : 063 -27 014 degrees QTc Int : 457 ms Poor data quality, interpretation may be adversely affected Normal sinus rhythm Right bundle branch block Abnormal ECG When compared with ECG of 02-MAR-2017 19:58, QRS axis Shifted left Confirmed by Telly Arceo ([id number]) on 08/26/2020 10:11:42 AM Referred By: REFERRED SELF Confirmed By:Telly Arceo
--- NOTE | 2020-08-26 15:40 | Discharge Summary ---
Date of Service August 26, 2020 Admission HPI Per Admitting Provider [place] Elam is a pleasant 64yo female presenting with Covid-19, hypoxia. Patient began developing symptoms approximately 6-7 days ago. She has a dry cough, chest discomfort, SOB, malaise, fevers/chills as well as nausea, vomiting and diarrhea, decreased oral intake. She does endorse loss of taste and smell as well. Symptoms have been persistent, progressively worsening over the last few days. Patient's with similar symptoms - he tested positive for Covid-19 on 08/22/20. She believes they were exposed to the virus when they were in [place]. She did receive her first dose of Covid-19 vaccine on August 04 and is due for her second shot on September 08 Upon arrival to the ER patient was febrile at 38.1, saturation of 88% on room air. She ambulated to the restroom with saturations decreasing to 80%. ER Course: Tylenol, Albuterol HFA, Tessalon, Decadron 6mg IV, Zofran, NSS Principal Diagnosis COVID-19 viral pneumonia Acute hypoxic respiratory failure improved Discharge Exam In general she is awake and alert pleasant no distress. HEENT normocephalic atraumatic mucous membranes moist. Lungs are surprisingly clear to auscultation bilaterally no rales rhonchi or wheeze with good effort. Skin shows no rashes no pallor or icterus. Neuro shows no focal deficits. Mental status shows good recent and remote recall normal mood and affect good judgment and insight. Discharge Data Allergies Allergy/AdvReac Type Severity Reaction Status Date / Time No Known Allergies Allergy Unverified 08/25/20 20:46 Consultations 08/25/20 23:43 ED Decision to Admit Stat Hospital Course (1) COVID-19: With hypoxia warranting admission -Fortunately since admission she feels a little bit better, clinically looks reasonable for what she is going through, and maintained good oxygen saturations on room air both at rest and with ambulation -She is stable for discharge to homewe will complete a 10-day course of Decadron, "red flag" symptoms were outlined as far as when to seek repeat care, and how to use an manager mobility pulse ox was reviewed -Outpatient follow-up (2) Severe depressed bipolar II disorder without psychotic features: Appears to be doing well in this regard, and at least for now steroids have not precipitated any mental status problems. Her renal function was good, lithium level low, and there are no notable drug interactions between dexamethasone and lithium to my cross check. Out patient follow-up otherwise Total Time Total Time Spent Total Time Spent (In Minutes): >30 Discharge Plan Discharge Items Patient Disposition: Home - Home Health Services Reason For Visit: COVID-19, HYPOXIA Discharge Diagnosis: COVID-19 pneumonia Activity: Resume your previous activity Non-emergency contact: Primary Care Provider Call non-emergency contact if: you have any medication questions, your symptoms worsen, your pain is worsening, your pain is concerning for you and your temperature is above 101.5 Follow-up/Referrals: Jade Montano MD [Primary Care Provider] - Diet: Regular Addtl Attending Provider Instructions: COVID-19 pneumonia -Typically what we have been seeing with Covid is that it takes quite a while to get better. There is usually a lot of inflammation in the lungs that takes a while to clear. Because of this, unfortunately, it would not surprise me if it takes a good month (occasionally longer) for you to get back to "good as new" -Because of this, to keep your sanity, do not radiation protection specialist progress day to day. Rather, look back in 3 to 4-day increments. If at any point you notice that you are worsening, that would warrant getting checked out right away, but if it simply that you feel like you are not getting betterthat is where looking back 3 to 4 days prior to compare gives you a more honest assessment. -Gradually increase activitydo not do anything that causes your oxygen saturations to drop below 90when that happens you should certainly stop and rest, but otherwise what you will want to do is gradually do more without pushing too hard. -Isolation recommendations keep changing, but right now the CDC would recommend that it is safe to be around others once 10 days have passed from when you first got sick, when you are 24 hours without a fever, and when your other symptoms are improving. It is, of course, that third criteria that will be a bit vague with yougiven that it will probably take a while for it to be clear that your symptoms are improving. To that end, it may be prudent to wait a little longer from when your symptoms first started, just to be sure that you are safe around other people. Pulse ox -A pulse ox can be a really helpful guide as you recover, given that it will show you objective data on your oxygen numbers -A quick perspective: Pulse ox is give you a percentage saturation of oxygen on your hemoglobin, not a "grade." To that end, it is important to remember that for a pulse ox, 97% or higher is what would really be "normal." 90% is not an "A-" and 88% is not a "B+". Something in those ranges is a bit low, is a reasonable guideline, for you, anything 90% or higher could be considered "safe". -If you are feeling short of breath, and you check a pulse ox, and it is above 90, then it is reasonable to watch and wait and see how you do over several hours. If you start to feel better, and your pulse ox stays above 90, then it is absolutely okay to stay at home. If your symptoms are worse/worrisome/not getting better, and your pulse ox is still above 90, it would really be your judgment call (and if in doubt favor seeking healthcare guidance). Regardless of symptoms, if you cannot get your pulse ox above 90% with rest, you would really want to move fairly quickly to getting checked out in the ER. Steroids -The dexamethasone that we are giving you basically works the same orally as it does IV. In that respect we are not reducing treatment, more making a bit of a lateral move. We will treat for a total of 10 days with the steroids. Your next dose (your first dose at home) will be tomorrow -To minimize your risk of stomach ulcers, I would hold off on taking your ibuprofen, while you are on the dexamethasone. Vaccine -There is pretty good data that when somebody has had Covid, afterwards they probably only need 1 dose of a vaccine and the 2 dose regimen category. However, I have not seen any medical data/literature on someone in your situation, where you had 1 dose and then got the disease. As we discussed, fortunately you did have the one dose, as it probably blunted how sick he would have gotten, but it is not entirely clear the best guidance on when to get the second dose. I definitely would recommend getting the second dose, because in your situation we want to make sure that you have maximum immunityparticularly given that the vaccine seems to give better overall immunity than simply being sick (which is a little bit odd, but probably has to do with some strange ways that Covid interrupts our own immune system's response). Unless further/better research to guidance becomes available, my loose recommendation would be getting the second dose, but probably waiting a few months to do so. As more people in your situation occur, we may have better guidance, but in the timing unique to your situation, I doubt there will be any wellresearched answer before it is time for you to finish your vaccine regimen. Pending Studies at Discharge: No Stand-Alone Forms: My [facility], Smoking Cessation Medications and DC Order Prescriptions: New dexamethasone 6 mg tablet 6 mg PO DAILY Qty: 8 RF: 0 Continued lamotrigine 200 mg tablet 200 mg PO DAILY RF: 0 sumatriptan succinate 100 mg tablet 100 mg PO UD PRN (Reason: Migraine Headache) RF: 0 lithium carbonate 300 mg capsule 300 mg PO DAILY RF: 0 trazodone 150 mg tablet 150 mg PO HS RF: 0 fluoxetine 20 mg capsule 40 mg PO DAILY RF: 0 quetiapine 200 mg tablet extended release 24 hr 200 mg PO HS RF: 0 trazodone 100 mg tablet 100 mg PO HS RF: 0 Discontinued ibuprofen 200 mg Tablet 400 mg PO Q6H PRN (Reason: Pain) RF: 0 Discharge Orders: Discharge Order (Routine); Ordered 08/26/20 Ordered By: Shaun Gasca Admission Data Admit Date/Time: 08/26/20 00:05 Attending Provider: Shaun Gasca Admit Provider: Geneva Faith Primary Care Provider: Jade Montano Other Providers: Geneva Faith Other Interventions: Discharge Summary Assessment (RN) Last Done: 08/26/20 12:59 Coding Level of Care Code 84080 OBS Care - Discharge Diagnoses COVID-19 U07.1 Severe depressed bipolar II disorder without psychotic features F31.81
[2020-08-26] MEDS ORDERED: traZODone HCL 100 MG TAB PO SCH (21:00)
[2020-08-26] MEDS ORDERED: traZODone HCL 50 MG TAB PO SCH (21:00)
[2020-08-26] MEDS ORDERED: QUEtiapine FUMARATE 200 MG TABCR PO SCH (21:00)
== END 2020-08-26 15:02 | disposition home health service (06) ==
LOC: ED 20:10 → INTOOBSV 08-26 00:05 → SUATTDRO 08-26 00:05 → 2W 08-26 00:05